=== PATIENT | male | born 1965 | race Caucasian/White ===

== ENCOUNTER 2020-05-12 07:22 | Emergency (ER) | payer BC ==
[~2020-05-12] VITALS: Ht 182.9 cm; Wt 98.2 kg
[~2020-05-12 07:22] MED LIST: ASPI81TA85 PO
--- NOTE | 2020-05-12 07:59 | REP ---
Portable chest x-ray: Single view. History: Chest pain. Comparison chest x-ray: September 09, 2014. Findings: The lungs are well inflated and clear. The pleural angles are sharp. Heart size is normal. Pulmonary vasculature is not increased. No significant bony abnormality is appreciated. Impression: No active disease. Electronically Signed by Armando Melendez MD 05/12/2020 07:51 A
[2020-05-12 08:00] LABS: BASO % 0.4 % (0.0-1.0); EOS # 0.2 10^3/uL (0.0-0.5); EOS % 2.7 % (0.0-3.0); HEMATOCRIT 45.8 % (42.0-52.0); HEMOGLOBIN 16.2 g/dl (13.5-17.5); LYMPH # 1.9 10^3/uL (1.5-5.0); LYMPH % 34.5 % (24.0-44.0); MEAN CORPUSCULAR HEMOGLOBIN 30.7 pg (27.0-33.0); MEAN CORPUSCULAR HGB CONC 35.4 g/dl (32.0-36.5); MEAN CORPUSCULAR VOLUME 86.9 fl (80.0-96.0); MONO # 0.5 10^3/uL (0.0-0.8); MONO % 9.5 % (0.0-5.0); NEUTROPHILS # 2.9 10^3/uL (1.5-8.5); NEUTROPHILS % 52.5 % (36.0-66.0); PLATELET COUNT, AUTOMATED 205 10^3/uL (150-450); RED BLOOD COUNT 5.27 10^6/uL (4.30-6.10); WHITE BLOOD COUNT 5.6 10^3/uL (4.0-10.0)
[2020-05-12] MEDS ORDERED: ISOVUE-370 76% 100ML VIAL As Ordered ONE (08:09)
[2020-05-12 08:11] LABS: INR 1.01
[2020-05-12 08:20] LABS: ALBUMIN 4.1 GM/DL (3.2-5.2); ALT/SGPT 52 U/L (12-78); BILIRUBIN,DIRECT 0.2 MG/DL (0.0-0.2); BILIRUBIN,TOTAL 1.1 MG/DL (0.2-1.0); CK-MB VALUE MASS 4.1 NG/ML (<3.6); CPK CREATINE PHOSPHOKINASE 285 U/L (39-308); LIPASE 79 U/L (73-393); MB/CK RELATIVE INDEX 1.44 (< OR =4); TOTAL PROTEIN 7.4 GM/DL (6.4-8.2); TROPONIN I < 0.02 NG/ML (< 0.10)
[2020-05-12 08:22] LABS: APPEARANCE, URINE CLEAR (CLEAR); BACTERIA, URINE AUTO NEGATIVE (NEGATIVE); BILIRUBIN, URINE AUTO NEGATIVE (NEGATIVE); BLOOD, URINE BLOOD NEGATIVE (NEGATIVE); COLOR, URINE STRAW (YELLOW); GLUCOSE, URINE (UA) AUTO NEGATIVE (NEGATIVE); KETONE, URINE AUTO NEGATIVE (NEGATIVE); LEUKOCYTE ESTERASE, URINE AUTO NEGATIVE (NEGATIVE); NITRITE, URINE AUTO NEGATIVE (NEGATIVE); PROTEIN, URINE AUTO NEGATIVE (NEGATIVE); RBC, URINE AUTO 2 /HPF (0-3); SPECIFIC GRAVITY URINE AUTO 1.004 (1.002-1.035); SQUAMOUS EPITHELIAL CELL UR AU 0 /HPF (0-6); UROBILINOGEN, URINE AUTO 0.2 mg/dL (0.0-2.0); WBC, URINE AUTO 1 /HPF (0-3)
[2020-05-12 08:42] LABS: MAGNESIUM LEVEL 2.2 MG/DL (1.8-2.4)
--- NOTE | 2020-05-12 09:32 | REP ---
REASON FOR EXAM: Chest pain and sedentary lifestyle. PRIORS: None. CONTRAST: 100 mL Isovue 370. There is excellent visualization of the pulmonary arterial vasculature. There are no focal filling defects present that would be considered consistent with acute pulmonary emboli. There are no pleural or pericardial effusions. There is no mediastinal or hilar adenopathy or mass. The imaged upper abdomen and imaged osseous structures are within normal limits. Evaluation of the lung harman shows them to be hypo expanded with bilateral basilar dependent subsegmental atelectatic changes without abnormal nodules, masses, or opacities. IMPRESSION: CT findings are within normal limits. Electronically Signed by Rancho Tavares DO 05/12/2020 04:25 P
--- NOTE | 2020-05-12 09:51 | ECGEPIP ---
[facility] - ED Test Date: 2020-05-12 Pat Name: JUAN MARSHALL Department: Room: - Gender: Male Fsr: halley : 1965 Requested By: TORIN Guzman Order Number: [id number] Reading MD: Bentley Koenig Measurements Intervals [place] Rate: 64 P: 55 SC: 170 QRS: -10 QRSD: 90 T: 67 QT: 413 QTc: 428 Interpretive Statements SINUS RHYTHM POOR R WAVE PROGRESSION NO PRIORS FOR COMPARISON Electronically Signed on 05-12-2020 9:51:26 EDT by Bentley Koenig
[2020-05-12 09:53] LABS: NT-PRO BNP 49 PG/ML (<125)
[2020-05-12] MEDS ORDERED: TELM1TAB35 PO (10:35)
[2020-05-12 10:44] VITALS: BP 150/94
== END 2020-05-12 10:52 | disposition home or self-care (01) ==
LOC: M ED 07:22
DX: R00.2 Palpitations (principal); I10 Essential (primary) hypertension; G47.33 Obstructive sleep apnea (adult) (pediatric); Z79.82 Long term (current) use of aspirin
CPT/HCPCS: 36415; 71045; 71275; 80047; 80076; 81001; 82550; 82553; 83690; 83735; 83880; 84443; 84484; 85025; 85610; 93005; 93041; 94760; 99285; Q9967

== ENCOUNTER 2023-05-31 09:05 | Day surgery (SDC) | payer BC ==
[~2023-05-31] VITALS: Ht 182.9 cm; Wt 102.5 kg
[~2023-05-31 09:05] MED LIST changes: +ASPI81TA26 PO; -ASPI81TA85 PO; +ASPI81TA86 PO; +NS 1,000 ML IV ONE; +TELM1TAB35 PO
[2023-05-31] MEDS ORDERED: LIDOCAINE 2% 100MG/5ML SDV (FOR ANES.) As Ordered ONE (09:27)
[2023-05-31] MEDS ORDERED: propofoL 200 MG/20 ML VIAL As Ordered ONE (09:28)
[2023-05-31 10:20] VITALS: TEMP 98.4
[2023-05-31 10:36] VITALS: BP 137/75; O2SAT 94
== END 2023-05-31 10:42 | disposition home or self-care (01) ==
LOC: M OPP 09:05
PROVIDERS: ATTEND Surgery
DX: Z12.11 Encounter for screening for malignant neoplasm of colon (principal); Z86.010 Personal history of colon polyps; K63.5 Polyp of colon; Z87.891 Personal history of nicotine dependence; G47.33 Obstructive sleep apnea (adult) (pediatric); Z79.82 Long term (current) use of aspirin; Z79.899 Other long term (current) drug therapy

== ENCOUNTER → 2024-04-23 | Outpatient (CLI) | payer BC ==
[~2024-04-23] MED LIST changes: +ISOVUE-370 76% 100ML VIAL ONE; -NS 1,000 ML IV ONE
== END ==
LOC: M PLAIMG 10:56
PROVIDERS: ATTEND Internal Medicine
DX: R82.90 Unspecified abnormal findings in urine (principal); K76.0 Fatty (change of) liver, not elsewhere classified; Z90.49 Acquired absence of other specified parts of digestive tract; N20.0 Calculus of kidney; N28.1 Cyst of kidney, acquired; N28.89 Other specified disorders of kidney and ureter
CPT/HCPCS: 74178; Q9967

== ENCOUNTER → 2025-04-03 | Outpatient (CLI) | payer BC ==
[~2025-04-03] MED LIST changes: -ISOVUE-370 76% 100ML VIAL ONE
== END ==
LOC: M RAD 12:37
PROVIDERS: ATTEND Internal Medicine
DX: G45.3 Amaurosis fugax (principal)